=== PATIENT | female | born 1990 | race Caucasian/White ===

== ENCOUNTER 2020-11-21 18:04 | Observation (INO) | payer BC ==
[~2020-11-21] VITALS: Ht 167.6 cm; Wt 76.2 kg
== END 2020-11-21 21:54 | disposition home or self-care (01) ==
LOC: U 18:04 → UNDOADMOB 18:07 → SPU 18:07 → UNDODISOB 20:30 → U 21:00 → SPU 21:00 → UNDOADMOB 21:54 → EDSTATUS 12-09 13:08
PROVIDERS: ADMIT Specialist; ATTEND Specialist
DX: O26.852 Spotting complicating pregnancy, second trimester (principal); Z3A.22 22 weeks gestation of pregnancy
CPT/HCPCS: 76805; 81002; G0378

== ENCOUNTER 2021-02-03 23:25 | Observation (INO) | payer BC ==
[~2021-02-03] VITALS: Ht 167.6 cm; Wt 79.8 kg
== END 2021-02-04 01:15 | disposition home or self-care (01) ==
LOC: SPU 23:25
PROVIDERS: ADMIT Obstetrics & Gynecology; ATTEND Obstetrics & Gynecology
DX: O46.93 Antepartum hemorrhage, unspecified, third trimester (principal); Z3A.33 33 weeks gestation of pregnancy
CPT/HCPCS: 81002; G0378

== ENCOUNTER 2021-03-17 07:20 | Inpatient (IN) | payer BC, SELFPAY ==
[~2021-03-17] VITALS: Ht 167.6 cm; Wt 78.5 kg
[2021-03-17] MEDS ORDERED: LR 1,000 ML IV ONE (09:00)
[2021-03-17] MEDS ORDERED: CEFAZOLIN 2 GM IVPB PREMIX 50 ML IV ONE ×3 (09:00→23:57)
[2021-03-17 09:28] LABS: BASOPHILS # (AUTO) 0.1 K/uL (0.0-0.2); BASOPHILS % (AUTO) 0.7 % (0.0-2.0); EOSINOPHILS % (AUTO) 0.2 % (0.0-4.0); HEMATOCRIT 38.6 % (36-48); HEMOGLOBIN 13.4 g/dL (12.0-16.0); LYMPHOCYTES # (AUTO) 0.7 K/uL (1.0-5.5); LYMPHOCYTES % (AUTO) 8.4 % (20.5-51.5); MEAN CORPUSCULAR HEMOGLOBIN 33 pg (27-31); MEAN CORPUSCULAR HGB CONC 35 % (32-36); MEAN CORPUSCULAR VOLUME 94 fL (79.0-98.0); MONOCYTES # (AUTO) 0.4 K/uL (0.0-1.0); MONOCYTES % (AUTO) 4.8 % (1.7-9.3); NEUTROPHILS # (AUTO) 6.7 K/uL (1.8-7.7); NEUTROPHILS % (AUTO) 85.9 % (40.0-70.0); PLATELET COUNT (AUTO) 131 K/uL (130-430); RED BLOOD CELL COUNT(AUTO) 4.12 MIL/uL (4.2-6.2); RED CELL DISTRIBUTION WIDTH 13.9 % (9.0-15.0); WHITE BLOOD COUNT (AUTO) 7.8 K/uL (4.8-10.8)
[2021-03-17 09:55] LABS: BILIRUBIN,URINE NEGATIVE (NEGATIVE); BLOOD, URINE NEGATIVE (NEGATIVE); CLARITY/URINE CLEAR (CLEAR); COLOR,URINE YELLOW (YELLOW); GLUCOSE,URINE NEGATIVE (NEGATIVE); KETONES,URINE 3+ (NEGATIVE); LEUKOCYTE ESTERASE ,URINE NEGATIVE (NEGATIVE); NITRITE, URINE NEGATIVE (NEGATIVE); PROTEIN URINE NEGATIVE (NEGATIVE); UROBILINOGEN,URINE 0.2 (0.2-1.0)
[2021-03-17 12:06] LABS: BACTERIA,URINE RARE /HPF (None Seen); RBC,URINE 0-3 /HPF (0-3); WBC,URINE 0-3 /HPF (0-3)
[2021-03-17 13:33] VITALS: BP_SYST 111
[2021-03-17] MEDS ORDERED: NS IRRIG SOLN 1000 ML IR ONE (17:00)
[2021-03-17] MEDS ORDERED: BUPIVACAINE /DEX PF 0.75% SPINAL 2 ML AMP INJ ONE (17:00)
[2021-03-17] MEDS ORDERED: WATER FOR IRRIGATION,STERILE 1,000 ML IRRIG.SOLN IR ONE (17:00)
[2021-03-17] MEDS ORDERED: MORPHINE SULFATE 10MG/10ML PF AMP EP ONE (17:00)
[2021-03-17] MEDS ORDERED: LR 1,000 ML IV.SOLN IV ONE (17:00)
[2021-03-17] MEDS ORDERED: ePHEDrine sulfate 50 MG/ML VIAL IVP ONE (17:00)
[2021-03-17] MEDS ORDERED: OXYTOCIN/0.9 % SODIUM CHLORIDE 1,000 ML IV ONE (17:30)
[2021-03-17] MEDS ORDERED: ANUSOL 1 EA SUPP.RECT (PREPARATION H) RC PRN (17:30)
[2021-03-17] MEDS ORDERED: LANOLIN 7 GM OINT. TP PRN (17:30)
[2021-03-17] MEDS ORDERED: BISACODYL 10 MG/SUPPOSITORY RC PRN (17:30)
[2021-03-17] MEDS ORDERED: LR 1,000 ML IV SCH (17:30)
[2021-03-17] MEDS ORDERED: OXYCODONE/ACETAMINOPHEN 5-325 TABLET PO PRN (17:30)
[2021-03-17] MEDS ORDERED: KETOROLAC TROMETHAMINE 60 MG/2 ML VIAL IM PRN (17:45)
[2021-03-17] MEDS ORDERED: fentaNYL CITRATE/PF 100 MCG/2 ML AMP IVP PRN ×2 (17:45)
[2021-03-17] MEDS ORDERED: NALBUPHINE HCL 10 MG/ML AMP IVP PRN (17:45)
[2021-03-17] MEDS ORDERED: ONDANSETRON HCL 4 MG/2 ML VIAL IVP PRN ×2 (17:45)
[2021-03-17] MEDS ORDERED: METOCLOPRAMIDE HCL 10 MG/2 ML VIAL IVP PRN (17:45)
[2021-03-17] MEDS ORDERED: DIPHENHYDRAMINE INJ 50 MG/ML VIAL IVP PRN (17:45)
[2021-03-17] MEDS ORDERED: NALOXONE HCL 0.4 MG/ML AMP (NARCAN) IVP PRN ×2 (17:45)
[2021-03-17] MEDS ORDERED: MORPHINE SULFATE 10MG/10ML PF AMP SP SCH (17:45)
[2021-03-17 17:51] VITALS: BP_SYST 139
[2021-03-17] MEDS ORDERED: SENNOSIDES/DOCUSATE SODIUM 1 TAB TABLET(SENOKOT-S) PO SCH (21:00)
[2021-03-17] MEDS ORDERED: TEMAZEPAM 15 MG CAPSULE PO PRN (21:00)
[2021-03-17] MEDS: DOCUSATE SODIUM 100 MG CAPSULE PO SCH (21:00)
[2021-03-17] MEDS: KETOROLAC TROMETHAMINE 30 MG VIAL IVP PRN (22:48)
[2021-03-17] MEDS ORDERED: METHYLERGONOVINE MALEATE 0.2 MG/ML AMP ONE (23:27)
[2021-03-17] MEDS ORDERED: ACETAMINOPHEN 500 MG TABLET ONE (23:32)
[2021-03-17] MEDS ORDERED: ACETAMINOPHEN 500 MG TABLET PO PRN (23:45)
[2021-03-17] MEDS ORDERED: METHYLERGONOVINE MALEATE 0.2 MG/ML AMP IM ONE (23:45)
[2021-03-17] MEDS: ceFAZolin SODIUM 2 GM in D5W 100 ML IV SCH (23:56)
[2021-03-18] MEDS ORDERED: METHYLERGONOVINE MALEATE 0.2 MG/ML AMP IM ONE (03:00)
[2021-03-18] MEDS ORDERED: ACETAMINOPHEN 500 MG TABLET PO PRN (03:00)
[2021-03-18] MEDS ORDERED: OXYTOCIN/0.9 % SODIUM CHLORIDE 1,000 ML IV ONE (03:00)
[2021-03-18] MEDS ORDERED: ceFAZolin SODIUM 2 GM in D5W 100 ML IV SCH (06:00)
[2021-03-18 07:24] LABS: BASOPHILS % (AUTO) 0.4 % (0.0-2.0); EOSINOPHILS % (AUTO) 0.3 % (0.0-4.0); HEMATOCRIT 37.5 % (36-48); HEMOGLOBIN 12.8 g/dL (12.0-16.0); LYMPHOCYTES # (AUTO) 1.1 K/uL (1.0-5.5); LYMPHOCYTES % (AUTO) 15.6 % (20.5-51.5); MEAN CORPUSCULAR HEMOGLOBIN 32 pg (27-31); MEAN CORPUSCULAR HGB CONC 34 % (32-36); MEAN CORPUSCULAR VOLUME 95 fL (79.0-98.0); MONOCYTES # (AUTO) 0.6 K/uL (0.0-1.0); MONOCYTES % (AUTO) 8.8 % (1.7-9.3); NEUTROPHILS # (AUTO) 5.5 K/uL (1.8-7.7); NEUTROPHILS % (AUTO) 74.9 % (40.0-70.0); PLATELET COUNT (AUTO) 117 K/uL (130-430); RED BLOOD CELL COUNT(AUTO) 3.96 MIL/uL (4.2-6.2); RED CELL DISTRIBUTION WIDTH 14.1 % (9.0-15.0); WHITE BLOOD COUNT (AUTO) 7.3 K/uL (4.8-10.8)
[2021-03-18] MEDS: ceFAZolin SODIUM 2 GM in D5W 100 ML IV SCH ×2 (08:10→16:03)
[2021-03-18] MEDS: DOCUSATE SODIUM 100 MG CAPSULE PO SCH (11:02)
[2021-03-18] MEDS ORDERED: CEFAZOLIN 2 GM IVPB PREMIX 50 ML IV SCH (14:00)
[2021-03-18] MEDS: KETOROLAC TROMETHAMINE 30 MG VIAL IVP PRN (14:55)
[2021-03-18] MEDS: SIMETHICONE 80 MG TAB.CHEW PO PRN (22:42)
[2021-03-18] MEDS: OXYCODONE/ACETAMINOPHEN 5-325 TABLET PO PRN (23:20)
[2021-03-19] MEDS: IBUPROFEN 800 MG TABLET PO PRN ×3 (00:27→11:16)
[2021-03-19] MEDS: OXYCODONE/ACETAMINOPHEN 5-325 TABLET PO PRN (05:28)
[2021-03-19] MEDS: SIMETHICONE 80 MG TAB.CHEW PO PRN (05:30)
[2021-03-19] MEDS: DOCUSATE SODIUM 100 MG CAPSULE PO SCH (08:48)
== END 2021-03-19 11:30 | disposition home or self-care (01) | DRG 788 ==
LOC: SPU 07:20
PROVIDERS: ADMIT Obstetrics & Gynecology; ATTEND Obstetrics & Gynecology
PROC: 10D00Z1 Extraction of Products of Conception, Low, Open Approach (ICD-10-PCS; principal; 2021-03-17 17:00)
DX: O34.211 Maternal care for low transverse scar from previous cesarean delivery (principal); Z3A.39 39 weeks gestation of pregnancy; Z37.0 Single live birth; Z20.822 Contact with and (suspected) exposure to COVID-19
CPT/HCPCS: 36415; 81000; 85025; 86592; 86886; 86900; 86901; 94760; J0690; J1885; J2210; J2274; J2590; J3490; J7060; J7120